=== PATIENT | male | born 1930 | race Caucasian/White ===

== ENCOUNTER 2016-07-24 20:31 | Observation (INO) | payer OTHER ==
[~2016-07-24] VITALS: Ht 170.2 cm; Wt 60.0 kg
[~2016-07-24 20:31] MED LIST: ASPIRIN325 MG PO; COREG6.25 M1 PO; HYDROCHLOROTHIA25 MG PO; LANOXIN125 MCG PO; LIPITOR20 MG PO; LISINOPRIL20 MG PO; RANITIDINE HCL150 MG PO
[2016-07-24 21:15] LABS: EOSINOPHIL (%) 0 % (0-5); HEMATOCRIT 35.8 % (38.0-50.0); IMMATURE GRANULOCYTE (%) 0.9 % (0.0-0.7); IMMATURE GRANULOCYTE COUNT 0.1 K/uL; INSTRUMENT ABS NEUTROPHIL CT 9.6 K/uL; LYMPHOCYTE COUNT 0.4 K/uL (1.0-2.8); MCH 30.1 PG (29.0-34.0); MCHC 33.5 G/DL (30.0-36.0); MCV 89.7 FL (86-99); MEAN PLAT.VOLUME 9.6 uM^3 (9.0-12.4); MONOCYTE (%) 5.6 % (3-12); MONOCYTE COUNT 0.6 K/uL (0-0.8); NEUTROPHIL (%) 89.4 % (45-76); NEUTROPHIL COUNT 9.6 K/uL (1.8-6.4); PLATELET COUNT 156 K/uL (156-360); RBC DIS.WIDTH-CV 12.3 % (11.8-14.6); RBC DIS.WIDTH-SD 40.3 % (39-53); RED BLOOD COUNT 3.99 M/uL (4.00-5.50); WHITE BLOOD COUNT 10.7 K/uL (4.1-10.2)
[2016-07-24 21:25] LABS: CHLORIDE 102 mEq/L (99-109)
[2016-07-24 21:26] LABS: MAGNESIUM 2.2 mg/dL (1.3-2.7); POTASSIUM 3.3 mEq/L (3.7-5.4); SODIUM 138 mEq/L (136-147)
[2016-07-24 21:35] LABS: TROP-I INTERPRETATION NEGATIVE; TROPONIN-I 0.02 ng/mL (0.0-0.30)
[2016-07-24 21:48] LABS: GLUCOSE 249 mg/dL (70-99)
[2016-07-24 21:50] LABS: ANION GAP 12 MEQ/L (2-14)
[2016-07-24 21:52] LABS: GFR ESTIMATE (CALCULATED) 41 mL/min/
[2016-07-24 21:53] LABS: UREA NITROGEN (BUN) 37 mg/dL (9-23)
[2016-07-24] MEDS ORDERED: LO-DOSE ASPIRIN81 M2 PO (22:26)
[2016-07-24] MEDS ORDERED: CALCIUM 600 +1 EA16 PO (22:28)
[2016-07-24 23:25] LABS: POINT-OF-CARE METER ID UU13113702
[2016-07-24 23:58] LABS: DIGOXIN 0.6 ng/mL (0.8-2.0)
[2016-07-25 00:05] LABS: INTER. NORMALIZED RATIO 1.1; PROTHROMBIN TIME 11.6 (9.2-11.2)
[2016-07-25 00:27] VITALS: BP 185/95
[2016-07-25 03:00] VITALS: BP 138/72
[2016-07-25 04:11] VITALS: BP 134/66
[2016-07-25 08:04] LABS: HEMATOCRIT 35.1 % (38.0-50.0); MCH 30.2 PG (29.0-34.0); MCHC 33.3 G/DL (30.0-36.0); MCV 90.7 FL (86-99); MEAN PLAT.VOLUME 9.7 uM^3 (9.0-12.4); PLATELET COUNT 139 K/uL (156-360); RBC DIS.WIDTH-CV 12.6 % (11.8-14.6); RBC DIS.WIDTH-SD 41.1 % (39-53); RED BLOOD COUNT 3.87 M/uL (4.00-5.50); WHITE BLOOD COUNT 8.8 K/uL (4.1-10.2)
[2016-07-25 08:17] LABS: INTER. NORMALIZED RATIO 1.2; PROTHROMBIN TIME 11.8 (9.2-11.2)
[2016-07-25 08:24] VITALS: BP 134/60
[2016-07-25 09:32] LABS: ALKALINE PHOSPHATASE 47 IU/L (3-129); ANION GAP 8 MEQ/L (2-14); CHLORIDE 102 MEQ/L (99-109); GFR ESTIMATE (CALCULATED) 48 mL/min/; GLUCOSE 128 mg/dL (70-99); SAMPLE HEMOLYSIS CHECK 0; SAMPLE ICTERIC CHECK 0; SAMPLE LIPEMIA CHECK 0; SODIUM 140 MEQ/L (136-147); TOTAL BILIRUBIN 0.5 MG/DL (0.0-1.0); UREA NITROGEN (BUN) 35 mg/dL (9-23)
[2016-07-25 09:35] LABS: POTASSIUM 4.1 MEQ/L (3.7-5.4)
[2016-07-25 12:11] VITALS: BP 156/75
[2016-07-25 16:07] VITALS: BP 185/72
[2016-07-25] MEDS ORDERED: ELIQUIS2.5 MG PO (16:37)
[2016-07-25] MEDS ORDERED: METOPROLOL SUCC25 MG PO (16:37)
== END 2016-07-25 18:03 | disposition home or self-care (01) ==
LOC: EME → EDBD 20:31 → EME 20:31 → EDOF 22:42 → 5WEST 07-25 00:12
PROVIDERS: Emergency Medicine; Internal Medicine
DX: I48.0 Paroxysmal atrial fibrillation (principal); E87.6 Hypokalemia; R07.89 Other chest pain; R20.0 Anesthesia of skin; I25.2 Old myocardial infarction; I12.9 Hypertensive chronic kidney disease with stage 1 through stage 4 chronic kidney disease, or unspecified chronic kidney disease; N18.3 Chronic kidney disease, stage 3 (moderate); K21.9 Gastro-esophageal reflux disease without esophagitis; Z87.891 Personal history of nicotine dependence; E78.00 Pure hypercholesterolemia, unspecified; R73.9 Hyperglycemia, unspecified; I25.10 Atherosclerotic heart disease of native coronary artery without angina pectoris; E78.5 Hyperlipidemia, unspecified
CPT/HCPCS: 71010; 80048; 80053; 80162; 82948; 83036; 83735; 83880; 84443; 84484; 85025; 85027; 85610; 85730; 93005; 99281; 99285; G0378; J3475

== ENCOUNTER → 2016-12-04 | Outpatient (CLI) | payer MEDICARE, OTHER ==
[~2016-12-04] MED LIST changes: +CALCIUM 600 +1 EA16 PO; +ELIQUIS2.5 MG PO; +LO-DOSE ASPIRIN81 M2 PO; +METOPROLOL SUCC25 MG PO
== END | disposition home or self-care (01) ==
LOC: CDC 12:00
DX: Z01.810 Encounter for preprocedural cardiovascular examination (principal); I44.7 Left bundle-branch block, unspecified
CPT/HCPCS: 93000